=== PATIENT | female | born 1950 | race Caucasian/White ===

== ENCOUNTER 2024-03-24 13:02 | Outpatient (CLI) | payer OTHER | END 2024-03-24 13:04 | disposition home or self-care (01) | LOC: SONOGRAMA 13:02 | PROVIDERS: ATTEND Pathology Anatomic Pathology & Clinical Pathology | DX: C02.3 Malignant neoplasm of anterior two-thirds of tongue, part unspecified (principal); C77.0 Secondary and unspecified malignant neoplasm of lymph nodes of head, face and neck; R59.0 Localized enlarged lymph nodes ==